=== PATIENT | male | born 1975 | race Caucasian/White ===

== ENCOUNTER 2017-05-29 18:06 | Emergency (ER) | payer OTHER ==
[2017-05-29] MEDS ORDERED: Xylocaine 2%-Epi 1:100,000 MDV IJ ONE ×2 (18:10→18:18)
--- NOTE | 2017-05-29 18:25 | ERPHSYRPT ---
- History of Present Illness Time Seen by Provider: 05/29/17 18:08 Source: patient Patient Subjective Stated Complaint: fish hook to back of head Triage Nursing Assessment: ambulated to room per self. fishing hook to back of head. no bleeding at this time. Physician History: CC: fishhook to head Hx: 41 y/o patient of Dr Coulter with fishhook enbedded in posterior scalp. Son was casting. Unable to get it out. Last tetanus vaccine one year ago. No allergies. Timing/Duration: today ([employer]) Allergies/Adverse Reactions: levofloxacin [From Levaquin] Allergy (Verified 05/29/17 18:21) Home Medications: No Reportable Medications [No Reported Medications] 05/29/17 [History] Hx Tetanus, Diphtheria Vaccination/Date Given: Yes (2015) Hx Influenza Vaccination/Date Given: No Hx Pneumococcal Vaccination/Date Given: No - Review of Systems Constitutional: No Fever Skin: Skin Lesions (fish hook) - Past Medical History Pertinent Past Medical History: No - Past Surgical History Past Surgical History: Yes Musculoskeletal: Orthopedic Surgery Other Surgical History: left elbow ulnar nerve - Social History Smoking Status: Never smoker Exposure to second hand smoke: No Drug Use: none Patient Lives Alone: No - Nursing Vital Signs Nursing Vital Signs: Initial Vital Signs Temperature 97.6 F 05/29/17 18:10 Pulse Rate 72 05/29/17 18:10 Respiratory Rate 16 05/29/17 18:10 Blood Pressure 129/87 05/29/17 18:10 O2 Sat by Pulse Oximetry 97 05/29/17 18:10 Pain Scale Pain Intensity 1 - Physical Exam General Appearance: alert Eye Exam: PERRL/EOMI Neck Exam: supple Neurologic Exam: alert, oriented x 3, cooperative Skin Exam: warm, dry, other (fish hook embedded in posterior scalp) SpO2: 97 Oxygen Delivery: Room Air Procedures - Additional Procedures Progress: Fish hook removal from scalp skin: Cleansed with hibiclens 3ml 2% with epi lidocaine injected local 18 ga needle down shank to protect dangelo. Hook removed en toto in retrograde fashion atraumatically. Cleansed with hibiclens. Pt aware of signs of infection and prefers no empriric abtx. - Course Nursing assessment & vital signs reviewed: Yes Ordered Tests: Active Orders 24 hr Category Date Time Status Wound Care STAT Care 05/29/17 18:18 Active Medication Summary Discontinued Medications Generic Name Dose Route Start Last Admin Trade Name Gerard PRN Reason Stop Dose Admin Lidocaine/Epinephrine Confirm 05/29/17 18:10 Xylocaine 2%-Epi 1:100,000 Mdv Administered 05/29/17 18:11 Dose 1 ml IJ .STK-MED ONE Lidocaine/Epinephrine 5 ml 05/29/17 18:18 Xylocaine 2%-Epi 1:100,000 Mdv IJ 05/29/17 18:19 STAT ONE - Departure Time of Disposition: 18:23 Departure Disposition: Home Clinical Impression: Fishing hook foreign body Qualifiers: Encounter type: initial encounter Qualified Code(s): W45.8XXA - Other foreign body or object entering through skin, initial encounter Condition: Stable Critical Care Time: No Referrals: ELIAS COULTER MD [Primary Care Provider] - Instructions: Removal of Foreign Body From Skin Additional Instructions: LACERATION CARE 1. Do not use peroxide, merthiolate, alcohol, or betadine. 2. Keep wound clean and dry. 3. Change dressing if it becomes wet or soiled. 4. If you must work, wear protective covering. 5. You may return to the emergency department or see your family physician for suture removal. 6. See your family physician or return to the emergency department for any of the following signs or symptoms: A. Redness B. Swelling C. Discolored drainage D. Red streaks E. Elevated temperature F. Other signs of infection
[2017-05-29 18:32] VITALS: BP 128/83; PULSE 68; O2SAT 98
== END 2017-05-29 18:32 | disposition home or self-care (01) ==
LOC: ED 18:06
DX: S01.04XA Puncture wound with foreign body of scalp, initial encounter (principal); W26.8XXA Contact with other sharp object(s), not elsewhere classified, initial encounter; W45.8XXA Other foreign body or object entering through skin, initial encounter
CPT/HCPCS: 99283